=== PATIENT | female | born 1995 | race Caucasian/White ===

== ENCOUNTER 2017-11-20 10:58 | Emergency (ER) | payer OTHER ==
--- NOTE | 2017-11-20 11:06 | PDOC ---
History of Present Illness - General Chief Complaint: Headache Stated Complaint: HEADACHE DRY MOUTH BLOOD PRESSURE LOW Time Seen by Provider: 11/20/17 11:05 - History of Present Illness Initial Comments: 11/20/17 12:48 Chief complaint: Headache and dry mouth History of present illness: Patient has had a headache and dry mouth since last night. This has occurred in the past when she has had low blood counts. She is diagnosed with a genetic lymphoma proliferative disorder (ALPS) for which she has been evaluated at the [facility] and is under the care of a welder first class at [facility]. She has been on steroids in the past when her counts have dropped, last course was 2 years ago. Splenectomy has been recommended but refused. Immunosuppressants of been recommended but refused. Review of systems: Denies fever/chills, sore throat, earache, cough, chest pain , shortness of breath, abdominal pain, nausea, vomiting, diarrhea, visual or focal neurologic symptoms, unsteadiness of gait, urinary tract symptoms including dysuria frequency urgency hesitancy or hematuria, vaginal bleeding or discharge. Menses are regular, last. October 26, denies the possibility of Past medical history: Immuno proliferative syndrome as noted above. 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 Family history: Reviewed and noncontributory including early coronary artery disease, metabolic disease including diabetes, cancer, blood dyscrasias. Physical exam: Alert oriented 3 well-developed well-nourished no acute distress cooperative Afebrile, vital signs normal PERRLA 4 mm, fundi benign, ENT clear. Mucous membranes mildly dry. Neck supple without bruit mass or nodes Lungs clear with full breath sounds throughout bilaterally, no wheezes rales or rhonchi CV S1 and S2 normal without murmur rub or gallop pulses full and symmetric no JVD or edema no bruits Abdomen soft nontender without mass or organomegaly. Nondistended. Bowel sounds normal. No CVAT Extremities no CCE Skin clear, no rash, adequate turgor and wet mucous membranes Neurological C2 to 12 intact. Strength full and symmetric. No focal sensory or motor deficits. Gait stable and unimpaired. Impression: Probable viral syndrome, mild dehydration, rule out leukopenia,, cytopenia, and anemia Plan: CBC and chemistries, oral hydration, Tylenol for headache, and observation. Past History - Past Medical History Allergies/Adverse Reactions: Allergies Allergy/AdvReac Type Severity Reaction Status Date / Time No Known Allergies Allergy Verified 11/20/17 11:07 Home Medications: Ambulatory Orders NK [No Known Home Medication] 11/20/17 - Immunization History Td Vaccination: Yes Immunization Up to Date: Yes - Suicide/Smoking/Psychosocial Hx Smoking Status: No Smoking History: Never smoked Years of Tobacco Use: 0 Number of Cigarettes Smoked Daily: 0 Cigars Per Day: 0 ED Treatment Course - LABORATORY CBC & Chemistry Diagram: 11/20/17 11:48 11/20/17 11:48 Medical Decision Making - Medical Decision Making 11/20/17 12:53 Patient's father is a physician on staff here, and supplies details about daughter's chronic illness. Her blood counts although low, are in the normal range for her and stable. The white count, H&H, and platelets are similar to prior values as compared in the record. Patient does not appear to have a serious occult infection. Oral hydration begun. Tylenol for headache. To observe. 11/20/17 14:47 Tolerating oral rehydration. Headache improved with Tylenol. Discharge with her parents in no acute distress, close follow-up by her father, primary M.D., and welder first class. *DC/Admit/Observation/Transfer Diagnosis at time of Disposition: Viral syndrome, Pancytopenia - Discharge Dispostion Disposition: HOME Condition at time of disposition: Stable Admit: No - Referrals - Patient Instructions Printed Discharge Instructions: DI for Viral Syndrome, DI for Pancytopenia Additional Instructions: Rest, fluids, Tylenol. Repeat blood counts 2 days if symptoms persist. Otherwise follow-up with PMD and welder first class. Return to ER if further serious symptoms develop. - Post Discharge Activity Forms/Work/School Notes: Back to School
[2017-11-20 11:14] VITALS: TEMP 99.7; BMI 25.6
[2017-11-20] MEDS ORDERED: ACETAMINOPHEN 325 MG TABLET (FP) PO ONE (11:17)
[2017-11-20] MEDS ORDERED: ACETAMINOPHEN 500 MG TABLET (FP) PO ONE (11:26)
[2017-11-20] MEDS ORDERED: ACETAMINOPHEN 500 MG TABLET (FP) ONE (11:39)
[2017-11-20 12:01] LABS: WHITE BLOOD COUNT 2.3 K/mm3 (4.0-10.8)
[2017-11-20 12:09] LABS: HEMATOCRIT 25.8 % (32.4-45.2); HEMOGLOBIN 8.2 GM/dl (10.7-15.3); MCH 22.6 pg (25.7-33.7); MCHC 31.9 g/dl (32.0-36.0); MEAN CELL VOLUME 70.9 fl (80-96); PLATELET COUNT 71 K/MM3 (134-434); RBC 3.63 M/mm3 (3.60-5.2); RDW 18.3 % (11.6-15.6)
[2017-11-20 12:15] LABS: ALBUMIN 2.9 g/dl (3.5-5.0); ALK PHOS 59 U/L (32-92); ANION GAP 6 (8-16); BILIRUBIN,TOTAL 0.3 mg/dl (0.2-1.0); BLOOD UREA NITROGEN 13 mg/dl (7-18); CALCIUM 7.9 mg/dl (8.4-10.2); CHLORIDE 99 mmol/L (98-107); CO2 24 mmol/L (22-28); CREATININE 0.6 mg/dl (0.6-1.3); GLUCOSE,RANDOM 108 mg/dl (74-106); POTASSIUM 3.4 mmol/L (3.5-5.1); SGOT/AST 26 U/L (10-42); SGPT/ALT 11 U/L (10-40); SODIUM 129 mmol/L (136-145); TOT PROT 6.9 g/dl (6.4-8.3)
[2017-11-20 12:22] LABS: ADD RBC MORPHOLOGY YES
[2017-11-20 12:56] VITALS: BP 96/63; PULSE 100
[2017-11-20 13:28] LABS: PH,URINE 5.5 (4.5-8); URINE APPEARANCE Clear; URINE BILIRUBIN 1+ (NEGATIVE); URINE BLOOD Negative (NEGATIVE); URINE GLUCOSE (UA) Negative (NEGATIVE); URINE KETONE Negative (NEGATIVE); URINE LEUK ESTERASE Negative (NEGATIVE); URINE NITRITE Negative (NEGATIVE)
[2017-11-20 13:30] LABS: URINE PROTEIN 1+ (NEGATIVE)
[2017-11-20 13:47] LABS: EPI CELLS NONE SEEN /HPF; URINE BACTERIA NONE SEEN /hpf (NEGATIVE); URINE RBC 0-3 /hpf (0-3); URINE WBC 0-3 (0-5)
[2017-11-20 14:15] LABS: PLATELET ESTIMATE DECREASED
== END 2017-11-20 14:01 | disposition home or self-care (01) ==
LOC: FER 10:58
DX: D61.818 Other pancytopenia (principal); B34.9 Viral infection, unspecified
CPT/HCPCS: 36415; 80053; 81003; 81015; 85025; 87086; 99282-25

== ENCOUNTER 2019-10-18 21:01 | Emergency (ER) | payer OTHER ==
[2019-10-18 21:11] VITALS: BP 129/81; PULSE 66; TEMP 98.6; BMI 24.7
[2019-10-18 22:29] LABS: HEMATOCRIT 30.5 % (32.4-45.2); HEMOGLOBIN 9.9 GM/dl (10.7-15.3); MCHC 32.6 g/dl (32.0-36.0); MEAN CELL VOLUME 73.7 fl (80-96); MEAN PLT VOLUME 8.9 fl (7.5-11.1); PLATELET COUNT 78 K/MM3 (134-434); RBC 4.14 M/mm3 (3.60-5.2); RDW 19.3 % (11.6-15.6); WHITE BLOOD COUNT 2.3 K/mm3 (4.0-10.8)
[2019-10-18 22:36] LABS: ADD RBC MORPHOLOGY YES; ALBUMIN 3.2 g/dl (3.4-5.0); BILIRUBIN,TOTAL 0.8 mg/dl (0.2-1); CALCIUM 8.3 mg/dl (8.5-10); CREATININE 0.6 mg/dl (0.55-1.3); POTASSIUM 3.8 mmol/L (3.5-5.1); TOT PROT 7.4 g/dl (6.4-8.2)
[2019-10-18 22:41] LABS: EPITHELIAL CELLS RARE /hpf
[2019-10-18 22:42] LABS: AMORP URATES 4+ /hpf (NONE SEEN)
[2019-10-18] MEDS ORDERED: MAGNESIUM CITRATE 300 ML BOTTLE PO ONE (23:01)
[2019-10-18] MEDS ORDERED: MAGNESIUM CITRATE 300 ML BOTTLE ONE (23:02)
--- NOTE | 2019-10-18 23:03 | PDOC ---
Documentation entered by Ethan Brown SCRIBE, acting as scribe for Kyung Majano MD. Kyung Majano MD: This documentation has been prepared by the Kevin muniz Xhesika, SCRIBE, under my direction and personally reviewed by me in its entirety. I confirm that the documentation accurately reflects all work, treatment, procedures, and medical decision making performed by me. History of Present Illness - General Chief Complaint: Pain, Acute Stated Complaint: UPPER ABDOMINAL PAIN History Source: Patient Exam Limitations: No Limitations - History of Present Illness Initial Comments: 10/18/19 21:27 The patient is a 23 y/o female with a PMH of anemia, enlarged spleen and constipation who presents to the ED for lower abdominal and epigastric pain x1day. The patient describes her pain as intermittent and sharp in nature. Pt states she feels more bloated than usual. Pt states she is on her menstrual cycle. Pt denies any alleviating or aggravating factors. pt states she has a normal BM this morning. PAST MEDICAL HISTORY: anemia, enlarged spleen and constipation PAST SURGICAL HISTORY: no significant history FAMILY HISTORY: no pertinent history SOCIAL HISTORY: Pt lives with family and is employed. MEDICATIONS: reviewed ALLERGIES: As per nursing notes 10/18/19 22:59 Patient's flat and abdomen less negative with the exception of a large amount of stool/constipation Patient's blood work was otherwise unremarkable with the exception of some anemia and a low white count that is her baseline. Patient was reassured that this is nothing more serious than constipation was given a bottle of mag citrate and discharged home. Past History - Past Medical History Allergies/Adverse Reactions: Allergies Allergy/AdvReac Type Severity Reaction Status Date / Time No Known Allergies Allergy Verified 10/18/19 21:02 Home Medications: Ambulatory Orders NK [No Known Home Medication] 11/20/17 Anemia: Yes COPD: No - Surgical History Appendectomy: Yes - Immunization History Td Vaccination: Yes Immunization Up to Date: Yes - Psycho Social/Smoking Cessation Hx Smoking Status: No Smoking History: Never smoked Years of Tobacco Use: 0 Number of Cigarettes Smoked Daily: 0 Cigars Per Day: 0 Hx Alcohol Use: No Drug/Substance Use Hx: No Substance Use Type: None Review of Systems - Review of Systems Able to Perform ROS?: Yes Comments:: 10/18/19 21:30 General: No fevers or chills, no weakness, no weight loss HEENT: No change in vision. No sore throat,. No ear pain CardioVascular: No chest pain or shortness of breath Respiratory:No cough, or wheezing. Gastrointestinal: no nausea, vomiting, diarrhea or constipation, No rectal bleeding. +bloating. +lower abdominal pain. +epigastric pain. Genitourinary: No dysuria, hematuria, or frequency Musculoskeletal: No joint or muscle pain or swelling Neurologic: No headache, vertigo, dizziness or loss of consciousness Psychiatric: nor depression Skin: No rashes or easy bruising Endocrine: no increased thirst or abnormal weight change Allergic: no skin or latex allergy All other systems reviewed and normal *Physical Exam - Vital Signs Last Vital Signs Temp Pulse Resp BP Pulse Ox 98.6 F 66 16 129/81 97 10/18/19 21:02 10/18/19 21:02 10/18/19 21:02 10/18/19 21:02 10/18/19 21:02 - Physical Exam 10/18/19 21:31 General: Well-nourished well-developed individual. +uncomfortable appearing. HEENT: Throat: Normal, tonsils normal, no erythema or exudate Neck: Supple, no meningeal signs, no lymphadenopathy Eyes::Pupils equal reactive and round, extraocular motion intact Chest: Nontender to palpation Cardiac: S1-S2 normal, regular rate and rhythm, no murmurs rubs or gallops Respiratory: Lungs clear to auscultation bilateral Abdomen: +distended abdomen. + enlarged spleen above pelvic brim, but not distended. + bilateral lower abdominal tenderness. Soft, normal bowel sounds Extremities: Warm, dry, no cyanosis, clubbing, or edema Skin: No rashes Neuro: Alert and oriented x3, nonfocal exam, grossly intact, normal gait Psych: Normal mood and affect ED Treatment Course - LABORATORY CBC & Chemistry Diagram: 10/18/19 21:30 10/18/19 21:30 - ADDITIONAL ORDERS Additional order review: Laboratory Results 10/18/19 10/18/19 10/18/19 22:15 21:30 21:30 Sodium 137 Potassium 3.8 Chloride 103 Carbon Dioxide 25 Anion Gap 9 BUN 16.0 Creatinine 0.6 Est GFR (CKD-EPI)AfAm 151.01 Est GFR (CKD-EPI)NonAf 130.29 Random Glucose 94 Calcium 8.3 L Total Bilirubin 0.8 AST 28 ALT 18 Alkaline Phosphatase 65 Total Protein 7.4 Albumin 3.2 L Lipase 148 Urine Color Yellow Urine Appearance Cloudy Urine pH 5.5 Urine Protein 1+ H Urine Glucose (UA) Negative Urine Ketones Negative Urine Blood 3+ H Urine Nitrite Negative Urine Bilirubin Negative Urine Urobilinogen 1.0 Ur Leukocyte Esterase Negative Urine RBC 40-60 Urine WBC 0-2 Ur Transition Epith Cell Rare Amorphous Urates 4+ 10/18/19 21:30 RBC 4.14 MCV 73.7 L MCHC 32.6 RDW 19.3 H MPV 8.9 Neutrophils % No Result Required. Lymphocytes % No Result Required. - RADIOLOGY Radiology Studies Ordered: Category Date Time Status ABDOMEN FLAT & UPRIGHT [RAD] Stat Radiology 10/18/19 21:17 Taken Discharge - Discharge Information Problems reviewed: Yes Clinical Impression/Diagnosis: Abdominal pain Qualifiers: Abdominal location: generalized Qualified Code(s): R10.84 - Generalized abdominal pain Constipation Qualifiers: Constipation type: unspecified constipation type Qualified Code(s): K59.00 - Constipation, unspecified Condition: Stable Disposition: HOME - Admission No - Follow up/Referral - Patient Discharge Instructions Additional Instructions: You are given a bottle of mag citrate which is a laxative drink it in the morning and it should help with your constipation. Return to the emergency department immediately with ANY new, persistent or worsening symptoms. Continue any medications as previously prescribed by your physician. You should follow up with your primary doctor as soon as possible regarding today's emergency department visit. . Please make sure your doctor reviews the results of your emergency evaluation. Thank you for coming to the Emergency Department today for your care. It was a pleasure to see you today. Please note that your evaluation is INCOMPLETE until you follow-up with your doctor. - Post Discharge Activity
[2019-10-18 23:04] LABS: ANISOCYTOSIS 2+; MACROCYTOSIS 1+; OVALOCYTE 2+; PLATELET ESTIMATE MOD DECREASED
[2019-10-18 23:06] LABS: ROULEAU 1+
== END 2019-10-18 23:07 | disposition home or self-care (01) ==
LOC: SUPCPDRO 21:01 → FER 21:01
DX: R10.84 Generalized abdominal pain (principal); K59.00 Constipation, unspecified
CPT/HCPCS: 36415; 74019-TC-FY; 80053; 81003; 81015; 81025; 83690; 85025; 87086; 87186; 99284-25

== ENCOUNTER 2022-05-03 07:40 | Emergency (ER) | payer OTHER ==
[2022-05-03 08:03] VITALS: BP 118/77; PULSE 90; RESP 20; TEMP 97.7; BMI 25.6
[2022-05-03] MEDS ORDERED: SODIUM CHLORIDE 0.9% 1000 ML INFUS.BAG IV ONE (08:19)
[2022-05-03] MEDS ORDERED: ACETAMINOPHEN 1000 MG/100 ML BAG IVPB ONE (08:19)
[2022-05-03] MEDS ORDERED: ACETAMINOPHEN INJECTION 100 ML IVPB ONE (08:25)
[2022-05-03 08:57] LABS: HCG,QUALITATIVE URINE Negative
[2022-05-03 09:18] LABS: HEMOGLOBIN 10.5 G/dL (10.7-15.3); MCH 24.6 pg (25.7-33.7); MCHC 33.8 g/dl (32.0-36.0); MEAN CELL VOLUME 72.9 fl (80-96); PLATELET COUNT 63.6 10^3/uL (134-434); RBC 4.25 10^6/uL (3.60-5.2); RDW 19.7 % (11.6-15.6); WHITE BLOOD COUNT 2.2 10^3/uL (4.0-10.8)
[2022-05-03 09:25] LABS: ALBUMIN 3.3 g/dl (3.4-5.0); BILIRUBIN,TOTAL 0.7 mg/dl (0.2-1); CALCIUM 8.7 mg/dl (8.5-10); CREATININE 0.5 mg/dl (0.55-1.3); TOT PROT 7.5 g/dl (6.4-8.2); URIC ACID 5.5 mg/dl (2.6-7.2)
[2022-05-03 09:39] LABS: ERYTHROCYTE SEDIMENTATION RATE 47 mm/hr (0-20)
[2022-05-03 10:17] LABS: PLATELET ESTIMATE ADEQUATE
[2022-05-05 00:06] LABS: CYCLIC CITRULLINE PEPTIDE AB 6 units (0-19)
== END 2022-05-03 12:14 | disposition home or self-care (01) ==
LOC: FER 07:40
PROC: 3E0333Z Introduction of Anti-inflammatory into Peripheral Vein, Percutaneous Approach (ICD-10-PCS; principal; 2022-05-03)
DX: M79.641 Pain in right hand (principal)
CPT/HCPCS: 0241U-QW; 36415; 70450-TC; 80053; 81003; 82550; 82553; 84484; 84550; 84703; 85027; 85651; 86038; 86140; 86200; 86431; 86618; 87086; 93005; 96374; 99285-25

== ENCOUNTER 2024-03-04 19:14 | Emergency (ER) | payer BC, OTHER ==
[2024-03-04 19:52] VITALS: BP 103/71; PULSE 80; RESP 16; TEMP 98.9; BMI 23.9
[2024-03-04 20:13] LABS: HCG,QUALITATIVE URINE Negative
[2024-03-04] MEDS: SODIUM CHLORIDE 1,000 ML IV STA ×2 (20:20→21:50)
[2024-03-04 20:30] LABS: HEMATOCRIT 32.9 % (32.4-45.2); HEMOGLOBIN 10.8 G/dL (10.7-15.3); MCH 24.9 pg (25.7-33.7); MCHC 32.9 g/dl (32.0-36.0); MEAN CELL VOLUME 75.7 fl (80-96); MEAN PLT VOLUME 9.3 fl (7.5-11.1); PLATELET COUNT 81.2 10^3/uL (134-434); RBC 4.34 10^6/uL (3.60-5.2); RDW 18.5 % (11.6-15.6); WHITE BLOOD COUNT 2.7 10^3/uL (4.0-10.8)
[2024-03-04 21:05] LABS: PLATELET ESTIMATE DECREASED
[2024-03-04 21:09] LABS: CREATININE 0.7 mg/dl (0.6-1.3); GLUCOSE,RANDOM 92 mg/dl (74-106)
[2024-03-04 21:10] LABS: ALBUMIN 3.7 g/dl (3.4-5.0); ANION GAP 7 mmol/L (4-13); BILIRUBIN,TOTAL 0.4 mg/dl (0.2-1); CALCIUM 9.1 mg/dl (8.5-10.1); CHLORIDE 103 mmol/L (98-107); CO2 26 mmol/L (21-32); SGOT/AST 16 U/L (15-37); SGPT/ALT 10 U/L (7-52); SODIUM 136 mmol/L (136-145); TOT PROT 7.4 g/dl (6.4-8.2)
[2024-03-04 21:11] LABS: ALK PHOS 54 U/L (45-117)
== END 2024-03-04 23:27 | disposition home or self-care (01) ==
LOC: FER 19:14
PROC: 3E0337Z Introduction of Electrolytic and Water Balance Substance into Peripheral Vein, Percutaneous Approach (ICD-10-PCS; principal; 2024-03-04)
PROC: 3E0337Z Introduction of Electrolytic and Water Balance Substance into Peripheral Vein, Percutaneous Approach (ICD-10-PCS; 2024-03-04)
DX: R00.2 Palpitations (principal); E86.0 Dehydration; I49.3 Ventricular premature depolarization
CPT/HCPCS: 36415; 80053; 81003; 81015; 84439; 84443; 84484; 84703; 85027; 93005; 99284-25